=== PATIENT | female | born 1960 | race Hispanic/Latino ===

== ENCOUNTER 2019-03-22 09:05 | Emergency (ER) | payer BC ==
[~2019-03-22] VITALS: Ht 149.9 cm; Wt 70.0 kg
[2019-03-22] MEDS ORDERED: JANUVIA100 MG PO (09:38)
[2019-03-22] MEDS ORDERED: ATORVASTATIN CA20 MG PO (09:38)
[2019-03-22] MEDS ORDERED: DICLOFENAC SODI75 M1 PO (09:39)
[2019-03-22] MEDS ORDERED: TRESIBA FL100 UNIT/M SC (09:58)
[2019-03-22] MEDS ORDERED: VITAMIN D350000 UNIT PO (09:59)
[2019-03-22] MEDS ORDERED: CYCLOBENZAPR10 MG PO ×2 (09:59→12:05)
[2019-03-22] MEDS ORDERED: LISINOPRIL10 MG PO (10:00)
[2019-03-22 10:12] LABS: HEMATOCRIT 44.6 % (37.0-47.0); HEMOGLOBIN 15.6 g/dl (12.0-16.0); IMMATURE GRANULOCYTES 0.5 % (0.0-5.0); MEAN CELL VOLUME 91.4 fL CALC (80.0-100.0); NEUT# 6.57 thou/uL (2.00-7.15); RED BLOOD COUNT 4.88 mill/uL (4.20-5.60); RED CELL DISTRI WIDTH 12.7 % (11.5-15.5)
[2019-03-22 10:31] LABS: ALKALINE PHOSPHATASE 191 u/l (38-126); ANION GAP 14 (6-22 (CALC)); BILIRUBIN, TOTAL 0.6 mg/dL (0.0-1.4); BUN 19 mg/dL (7-17); BUN/CREATININE RATIO 24 (12-20 (CALC)); CARBON DIOXIDE 25 mmol/l (22-30); CHLORIDE 103 mmol/l (95-108); CPK 36 u/l (30-165); CREATININE 0.8 mg/dL (0.5-1.0); GFR > 60 ML/MIN (>=60 (CALC)); GFR FOR AFR.AMER. > 60 ML/MIN (>=60 (CALC)); POTASSIUM 4.5 mmol/l (3.5-5.1); SGOT/AST 49 u/l (14-36); SODIUM 138 mmol/l (137-146); TOTAL PROTEIN 7.4 g/dL (6.3-8.2)
[2019-03-22 10:38] LABS: URINE BILIRUBIN - DIPSTICK NEGATIVE (NEGATIVE); URINE BLOOD DIPSTICK NEGATIVE (NEGATIVE); URINE COLOR YELLOW; URINE GLUCOSE - DIPSTICK >=1000 mg/dL (NEGATIVE); URINE KETONE NEGATIVE (NEGATIVE); URINE LEUK ESTERASE NEGATIVE (NEGATIVE); URINE NITRITE - DIPSTICK NEGATIVE (Negative); URINE PH 5.5 (4.5-8.0); URINE PROTEIN - DIPSTICK 30 mg/dL (NEG-TRACE); URINE SPECIFIC GRAVITY 1.015; URINE UROBILINOGEN - DIPSTICK 0.2 E.U./dL (0.2)
[2019-03-22 10:39] LABS: URINE EPITHELIAL CELLS MODERATE EPI/hpf (0-FEW)
[2019-03-22 12:11] VITALS: BP 123/66
== END 2019-03-22 12:15 | disposition home or self-care (01) | DRG 556 ==
LOC: ED 09:05
PROVIDERS: Family Medicine
DX: M62.838 Other muscle spasm (principal); E11.65 Type 2 diabetes mellitus with hyperglycemia; I10 Essential (primary) hypertension; Z79.4 Long term (current) use of insulin; F17.210 Nicotine dependence, cigarettes, uncomplicated

== ENCOUNTER 2020-11-04 09:37 | Inpatient (IN) | payer OTHER ==
[2020-11-04] VITALS (11 sets, daily range): BP systolic 114–152; BP diastolic 75–98
[~2020-11-04 09:37] MED LIST: ATORVASTATIN CA20 MG PO; CYCLOBENZAPR10 MG PO; DICLOFENAC SODI75 M1 PO; JANUVIA100 MG PO; LISINOPRIL10 MG PO; LYRICA150 MG PO; TIZANIDINE4 MG PO; TRESIBA FL100 UNIT/M SC; VITAMIN D350000 UNIT PO
[2020-11-04 10:19] LABS: BASO% 1 % (0-3); EOS% 1 % (0-8); HEMATOCRIT 44.1 % (37.0-47.0); HEMOGLOBIN 15.5 g/dl (12.0-16.0); IMMATURE GRANULOCYTES 0.6 % (0.0-5.0); LYMPH% 27 % (15-41); MEAN CELL VOLUME 88.6 fL CALC (80.0-100.0); MEAN CORPUSCULAR HGB 31.1 pG CALC (26.0-32.0); MEAN CORPUSCULAR HGB CONC 35.1 g/dL CAL (32.0-36.0); MONO% 6 % (2-13); NEUT% 64 % (42-76); PLATELET COUNT 200 thou/uL (130-400); RED BLOOD COUNT 4.98 mill/uL (4.20-5.60)
[2020-11-04 10:35] LABS: URINE BILIRUBIN - DIPSTICK NEGATIVE (NEGATIVE); URINE BLOOD DIPSTICK TRACE-LYSED (NEGATIVE); URINE COLOR YELLOW; URINE GLUCOSE - DIPSTICK >=1000 mg/dL (NEGATIVE); URINE KETONE TRACE mg/dL (NEGATIVE); URINE LEUK ESTERASE NEGATIVE (NEGATIVE); URINE PROTEIN - DIPSTICK 100 mg/dL (NEG-TRACE); URINE SPECIFIC GRAVITY 1.015; URINE UROBILINOGEN - DIPSTICK 0.2 E.U./dL (0.2)
[2020-11-04 10:35] LABS: AMYLASE 80 u/l (30-110); LIPASE 363 u/l (23-300)
[2020-11-04 10:36] LABS: URINE EPITHELIAL CELLS MODERATE EPI/hpf (0-FEW); URINE NITRITE - DIPSTICK NEGATIVE (Negative); URINE RBC 0-2 RBC/hpf (0-5)
[2020-11-04 11:19] LABS: ALBUMIN 4.3 g/dL (3.2-5.0); ALKALINE PHOSPHATASE 212 u/l (38-126); ANION GAP 14 (6-22 (CALC)); BILIRUBIN, TOTAL 0.8 mg/dL (0.0-1.4); BUN 23 mg/dL (7-17); BUN/CREATININE RATIO 22 (12-20 (CALC)); CARBON DIOXIDE 23 mmol/l (22-30); CHLORIDE 96 mmol/l (95-108); CREATININE 1.1 mg/dL (0.5-1.0); GFR 51 ML/MIN (>=60 (CALC)); GFR FOR AFR.AMER. > 60 ML/MIN (>=60 (CALC)); SGOT/AST 31 u/l (14-36)
[2020-11-04 11:22] LABS: SODIUM 128 mmol/l (137-146)
[2020-11-05] VITALS (12 sets, daily range): BP systolic 120–153; BP diastolic 58–92
[2020-11-05 05:40] LABS: HEMATOCRIT 39.1 % (37.0-47.0); MEAN CELL VOLUME 91.8 fL CALC (80.0-100.0); MEAN CORPUSCULAR HGB 31.2 pG CALC (26.0-32.0); RED BLOOD COUNT 4.26 mill/uL (4.20-5.60); RED CELL DISTRI WIDTH 12.3 % (11.5-15.5)
[2020-11-05 05:44] LABS: HEMOGLOBIN 13.3 g/dl (12.0-16.0)
[2020-11-05 06:25] LABS: ANION GAP 9 (6-22 (CALC)); BUN 14 mg/dL (7-17); BUN/CREATININE RATIO 17 (12-20 (CALC)); CARBON DIOXIDE 22 mmol/l (22-30); CHLORIDE 107 mmol/l (95-108); CHOLESTEROL HDL RATIO 11.6 (<4.4 (CALC)); CREATININE 0.8 mg/dL (0.5-1.0); GFR > 60 ML/MIN (>=60 (CALC)); GFR FOR AFR.AMER. > 60 ML/MIN (>=60 (CALC)); HDL CHOLESTEROL 24 mg/dL (>=40); MAGNESIUM 1.7 mg/dL (1.6-2.3); POTASSIUM 4.5 mmol/l (3.5-5.1); SODIUM 133 mmol/l (137-146); TOTAL CHOLESTEROL 279 mg/dl (0-199)
[2020-11-05 06:27] LABS: TOTAL TRIGLYCERIDES > 525 mg/dl (30-149)
[2020-11-06] VITALS: BP 134/70
[2020-11-06 04:00] VITALS: BP 141/79
[2020-11-06 05:42] LABS: HEMATOCRIT 37.6 % (37.0-47.0); HEMOGLOBIN 13.1 g/dl (12.0-16.0); MEAN CELL VOLUME 89.7 fL CALC (80.0-100.0); MEAN CORPUSCULAR HGB 31.3 pG CALC (26.0-32.0); MEAN CORPUSCULAR HGB CONC 34.8 g/dL CAL (32.0-36.0); RED BLOOD COUNT 4.19 mill/uL (4.20-5.60); RED CELL DISTRI WIDTH 12.3 % (11.5-15.5)
[2020-11-06 06:12] LABS: ANION GAP 9 (6-22 (CALC)); BUN 13 mg/dL (7-17); BUN/CREATININE RATIO 16 (12-20 (CALC)); CARBON DIOXIDE 19 mmol/l (22-30); CHLORIDE 109 mmol/l (95-108); CREATININE 0.8 mg/dL (0.5-1.0); GFR > 60 ML/MIN (>=60 (CALC)); GFR FOR AFR.AMER. > 60 ML/MIN (>=60 (CALC)); SODIUM 132 mmol/l (137-146)
[2020-11-06 08:00] VITALS: BP 155/82
[2020-11-06] MEDS ORDERED: LEVEMIR FL100 UNIT/M SC (10:44)
[2020-11-06] MEDS ORDERED: NYSTOP100000 UNI TOP (10:45)
[2020-11-06] MEDS ORDERED: TRAMADOL HCL50 MG PO (10:46)
[2020-11-06 12:00] VITALS: BP 165/88
[2020-11-06 13:27] VITALS: BP 163/84
[2020-11-06 14:12] VITALS: BP 158/83
== END 2020-11-06 14:55 | disposition home or self-care (01) | DRG 638 ==
LOC: ED 09:37 → ED-I 12:38 → ED 12:57 → ICU 12:58
PROVIDERS: Emergency Medicine; Nurse Practitioner; ADMIT Internal Medicine; ATTEND Internal Medicine
DX: E11.65 Type 2 diabetes mellitus with hyperglycemia (principal); E87.1 Hypo-osmolality and hyponatremia; N17.9 Acute kidney failure, unspecified; I10 Essential (primary) hypertension; T38.3X6A Underdosing of insulin and oral hypoglycemic [antidiabetic] drugs, initial encounter; E78.5 Hyperlipidemia, unspecified; F17.210 Nicotine dependence, cigarettes, uncomplicated; Z91.120 Patient's intentional underdosing of medication regimen due to financial hardship; Z79.4 Long term (current) use of insulin; Z20.822 Contact with and (suspected) exposure to COVID-19
CPT/HCPCS: J1650

== ENCOUNTER 2021-02-09 21:08 | Emergency (ER) | payer OTHER ==
[~2021-02-09] VITALS: Ht 149.9 cm; Wt 68.0 kg
[~2021-02-09 21:08] MED LIST changes: +LEVEMIR FL100 UNIT/M SC; +NYSTOP100000 UNI TOP; +TRAMADOL HCL50 MG PO
[2021-02-09 21:48] LABS: IMMATURE GRANULOCYTES 0.2 % (0.0-5.0); MEAN CELL VOLUME 88.7 fL CALC (80.0-100.0); MEAN CORPUSCULAR HGB 31.5 pG CALC (26.0-32.0); MEAN CORPUSCULAR HGB CONC 35.6 g/dL CAL (32.0-36.0); NEUT# 10.1 thou/uL (2.00-7.15); RED BLOOD COUNT 5.23 mill/uL (4.20-5.60); RED CELL DISTRI WIDTH 12.2 % (11.5-15.5)
[2021-02-09 21:49] LABS: URINE BLOOD DIPSTICK MODERATE (NEGATIVE); URINE COLOR YELLOW; URINE GLUCOSE - DIPSTICK 500 mg/dL (NEGATIVE); URINE KETONE TRACE mg/dL (NEGATIVE); URINE LEUK ESTERASE NEGATIVE (NEGATIVE); URINE PH 5.5 (4.5-8.0); URINE PROTEIN - DIPSTICK >=300 mg/dL (NEG-TRACE); URINE SPECIFIC GRAVITY >=1.030; URINE UROBILINOGEN - DIPSTICK 0.2 E.U./dL (0.2)
[2021-02-09 21:50] LABS: URINE BILIRUBIN - DIPSTICK NEGATIVE (NEGATIVE); URINE NITRITE - DIPSTICK NEGATIVE (Negative)
[2021-02-09 21:50] LABS: HEMATOCRIT 46.4 % (37.0-47.0); HEMOGLOBIN 16.5 g/dl (12.0-16.0)
[2021-02-09 21:57] LABS: URINE SQUAMOUS EPITHELIAL CELL FEW EPI/hpf (0-FEW)
[2021-02-09 22:03] LABS: ALBUMIN 3.9 g/dL (3.2-5.0); ALKALINE PHOSPHATASE 149 u/l (38-126); AMYLASE 104 u/l (30-110); ANION GAP 12 (6-22 (CALC)); BILIRUBIN, TOTAL 0.9 mg/dL (0.0-1.4); BUN 21 mg/dL (7-17); BUN/CREATININE RATIO 20 (12-20 (CALC)); CARBON DIOXIDE 21 mmol/l (22-30); CHLORIDE 104 mmol/l (95-108); GFR 57 ML/MIN (>=60 (CALC)); GFR FOR AFR.AMER. > 60 ML/MIN (>=60 (CALC)); LIPASE 269 u/l (23-300); POTASSIUM 4.2 mmol/l (3.5-5.1); SODIUM 133 mmol/l (137-146); TOTAL PROTEIN 7.9 g/dL (6.3-8.2)
[2021-02-09 22:07] LABS: SGOT/AST 155 u/l (14-36)
[2021-02-09 22:15] LABS: MYOGLOBIN 32 ng/mL (0 - 62)
[2021-02-09] MEDS ORDERED: MECLIZINE25 MG PO (23:59)
[2021-02-09] MEDS ORDERED: CEPHALEXIN500 MG PO (23:59)
[2021-02-09] MEDS ORDERED: ONDANSETRON4 MG PO (23:59)
[2021-02-10 00:22] VITALS: BP 132/75
== END 2021-02-10 00:22 | disposition home or self-care (01) | DRG 690 ==
LOC: ED 21:08
PROVIDERS: Emergency Medicine
DX: N39.0 Urinary tract infection, site not specified (principal); R42 Dizziness and giddiness; E11.9 Type 2 diabetes mellitus without complications; I10 Essential (primary) hypertension; E78.00 Pure hypercholesterolemia, unspecified; F17.210 Nicotine dependence, cigarettes, uncomplicated; Z79.4 Long term (current) use of insulin
CPT/HCPCS: Q9967

== ENCOUNTER 2023-04-28 23:55 | Observation (INO) | payer OTHER ==
[~2023-04-28] VITALS: Ht 149.9 cm; Wt 75.0 kg
[~2023-04-28 23:55] MED LIST changes: +CEPHALEXIN500 MG PO; +MECLIZINE25 MG PO; +ONDANSETRON4 MG PO
--- NOTE | 2023-04-28 23:55 | NUR ---
PT TO RM 9 VIA EMS
[2023-04-29] VITALS (95 sets, daily range): BP systolic 107–213; BP diastolic 56–114
[2023-04-29] MEDS ORDERED: NEURONTIN100 MG PO (00:19)
[2023-04-29] MEDS ORDERED: XANAX0.25 MG PO (00:20)
[2023-04-29] MEDS ORDERED: LASIX 20 MG TAB20 MG PO (00:21)
[2023-04-29 00:46] LABS: BASO% 0.5 % (0-3); EOS% 4.5 % (0-8); HEMATOCRIT 40.7 % (37.0-47.0); IMMATURE GRANULOCYTES 0.5 % (0.0-5.0); LYMPH% 20.8 % (15-41); MEAN CORPUSCULAR HGB 33.6 pG CALC (26.0-32.0); MEAN CORPUSCULAR HGB CONC 35.6 g/dL CAL (32.0-36.0); MONO% 7.9 % (2-13); NEUT# 3.83 thou/uL (2.00-7.15); NEUT% 65.8 % (42-76); RED BLOOD COUNT 4.31 mill/uL (4.20-5.60); RED CELL DISTRI WIDTH 11.7 % (11.5-15.5)
[2023-04-29 00:48] LABS: HEMOGLOBIN 14.5 g/dl (12.0-16.0); MEAN CELL VOLUME 94.4 fL CALC (80.0-100.0)
[2023-04-29 00:53] LABS: ALBUMIN 3.3 g/dL (3.2-5.0); ALKALINE PHOSPHATASE 152 u/l (38-126); ANION GAP 11 (6-22 (CALC)); BUN 24 mg/dL (8-23); BUN/CREATININE RATIO 15 (12-20 (CALC)); CARBON DIOXIDE 22 mmol/l (22-30); CHLORIDE 106 mmol/l (95-108); CREATININE 1.6 mg/dL (0.5-1.0); GFR FOR AFR.AMER. 40 ML/MIN (>=60 (CALC)); GFR OTHER RACES 33 ML/MIN (>=60 (CALC)); POTASSIUM 3.7 mmol/l (3.5-5.1); SGOT/AST 44 u/l (9-36); SODIUM 135 mmol/l (137-146); TOTAL PROTEIN 6.8 g/dL (6.3-8.2)
[2023-04-29 00:54] LABS: BILIRUBIN, TOTAL 0.4 mg/dL (0.02-1.3)
[2023-04-29 01:27] LABS: ACT PARTIAL THROMBO TIME 25.3 SECONDS (20.0-32.5); PROTHROMBIN TIME 9.3 SECONDS (9.0-12.5)
--- NOTE | 2023-04-29 02:30 | NUR ---
PATIENT ARRIVED ON UNIT VIA STRETCHER, ACCOMPANIED BY 2 ER NURSES. PATIENT AMBULATED TO BED. ASSESSMENT COMPLETED. SHE IS A/O X3. VSS AT THIS TIME. EMS NOTED TO THE RIGHT HAND WITH HANS DRIPP AT 5. CARDENE DRIP TURNED DOWN TO 2.5, HER BP IS DROPPING TO LOW TO FAST. WILL CONTINUE TO MONITOR BP CLOSELY. HER LUNGS ARE CTA. BOWEL SOUNDS ACTIVE IN ALL FOUR QUADS. SHE STATED SHE HAS NOT HAD A BM IN 4 DAYS, WHICH IS NORMAL FOR HER. SHE IS SR ON THE MONITOR. SKIN INTACT. +2 PITTING EDEMA NOTED TO BLE. SHE COMPLAINS OF HEADACHE THAT IS STARTING TO BE RELEIVED FROM MEDS THAT WERE GIVEN IN ER. BED LOCKED. IN LOW POSITION. CALL LIGHT WITHIN REACH.
--- NOTE | 2023-04-29 05:54 | NUR ---
PATIENT COMPLAINING OF SEVERE HEADACHE THAT IS COMING AND GOING. MD CONTACTED FOR SOMETHING STRONGER TO CONTROL PATIENTS HEADACHE.
--- NOTE | 2023-04-29 07:20 | NUR ---
pt awake in bed; no apparent distress noted; assessment completed at this time; pt alert and oriented; admits to headache rating 3/10, admits to pain relief s/p receiving pain meds; warm pack noted to forehead; pt denies n/v; resp even and unlabored; lungs clear; skin color wnl; ra; hr reg; strong pulses; no edema noted; sr/st on monitor; abd soft/distended with bs present; no bm noted per technical proposal writer; pt admits to voiding, brp; no urine to inspect at this time; #20 ems site patent to rh with cardene gtt infusing at 2.5mg/hr; no redness or edema noted at site; plan of care/ meds explained; call light within reach; will continue to monitor
--- NOTE | 2023-04-29 08:00 | NUR ---
awake; complaints of right side headache; sr/st on monitor; call light within reach; will continue to monitor
--- NOTE | 2023-04-29 10:15 | NUR ---
awake in bed; sr/st on monitor; call light within reach; will continue to monitor
--- NOTE | 2023-04-29 10:50 | NUR ---
Dr Manriquez present at bedside to assess pt and discuss plan of care
--- NOTE | 2023-04-29 12:00 | NUR ---
awake in bed eating lunch; no apparent distress noted; iv intact; sr on monitor; call light within reach; will continue to monitor
[2023-04-29 12:31] LABS: CREATININE 1.4 mg/dL (0.5-1.0); POTASSIUM 3.9 mmol/l (3.5-5.1)
--- NOTE | 2023-04-29 14:00 | NUR ---
resting in bed with eyes closed; no acute distress; will continue to monitor
--- NOTE | 2023-04-29 16:10 | NUR ---
awake in bed; complaints of headache, previously medicated; sr on monitor; will continue to monitor
--- NOTE | 2023-04-29 17:57 | NUR ---
awake in bed eating dinner; offers no complaints; iv intact; sr on monitor; call light within reach
--- NOTE | 2023-04-29 18:26 | NUR ---
family x2 at bedside
--- NOTE | 2023-04-29 19:00 | NUR ---
BEDSIDE REPORT RECEIVE FROM Ruben FINNEGAN RN AT BEDSIDE. CARE OF PT ASSUMED AT THIS TIME.
--- NOTE | 2023-04-29 19:37 | NUR ---
POINT OF CARE GLUCOSE 184mg/Dl.
--- NOTE | 2023-04-29 20:37 | NUR ---
PRESCRIBED MEDICATIONS ADMINISTERED, PRN APAP ADMINISTERED FOR MILD THROBBING HEADACHE RATED 2/10 BY PT. SEE E-MAR. WATER PITCHER REFRESHED. PT DENIES FIRTHER NEEDS AT THIS TIME. CALL DEL ROSARIO WITHIN REACH, AGREES TO CALL PRN.
[2023-04-30] VITALS (15 sets, daily range): BP systolic 128–166; BP diastolic 80–98
--- NOTE | 2023-04-30 | NUR ---
PT LAYING IN BED, EYES CLOSED, GENTLY SNORING, RESPIRATIONS REGULAR AND UNLABORED. NO APPARENT DISTRESS. APPEARS TO BE SLEEPING COMFORTABLY. CALL [facility] ROSARIO REMAINS WITHIN REACH.
--- NOTE | 2023-04-30 03:30 | NUR ---
PT WAKES AND REQUEST PRN ANALGESIC FOR HEADACHE, RATES PAIN LEVEL 6/10. PRN LORTAB ADMINISTERED. WARM COMPRESS PROVIDED.
--- NOTE | 2023-04-30 04:26 | NUR ---
PHLEPOTOMIST AT BEDSIDE COLLECTING AM LABS.
--- NOTE | 2023-04-30 04:30 | NUR ---
PT REPORTS ACCEPTABLE RELIEF OF HEADACHE, DENIES FURTHER NEEDS AT THIS TIME. CARLA DEL ROSARIO WITHIN REACH, AGREES TO CALL PRN.
[2023-04-30 05:19] LABS: HEMATOCRIT 38.1 % (37.0-47.0); HEMOGLOBIN 13.7 g/dl (12.0-16.0); MEAN CORPUSCULAR HGB 34.2 pG CALC (26.0-32.0); RED BLOOD COUNT 4.01 mill/uL (4.20-5.60); RED CELL DISTRI WIDTH 11.8 % (11.5-15.5)
[2023-04-30 05:47] LABS: ALBUMIN 2.7 g/dL (3.2-5.0); CREATININE 1.3 mg/dL (0.5-1.0); MAGNESIUM 1.6 mg/dL (1.6-2.3); POTASSIUM 3.5 mmol/l (3.5-5.1); TOTAL PROTEIN 5.6 g/dL (6.3-8.2)
[2023-04-30 05:48] LABS: BILIRUBIN, TOTAL 0.6 mg/dL (0.02-1.3)
--- NOTE | 2023-04-30 07:25 | NUR ---
pt awake in bed; no apparent distress noted; pt offers complaints of improving headache; assessment completed at this time; pt alert and oriented; no n/v noted; resp even and unlabored; lungs clear; skin color wnl; ra; hr reg; strong pulses; 1+ edema noted to ble; sr on monitor; abd soft with bs present present; no bm noted per medical underwriter; pt admits to voiding without complication; no urine to inspect; bsc; #20 ems site to rh flushed and patent; no redness or edema noted at site; plan of care/ meds explained; call light within reach; will continue to monitor
--- NOTE | 2023-04-30 08:08 | NUR ---
awake in bed; no apparent distress noted; sr on monitor; will continue to monitor
--- NOTE | 2023-04-30 10:09 | NUR ---
awake conversing on cell phone; no distress noted; sr on monitor; will continue to monitor
--- NOTE | 2023-04-30 10:20 | NUR ---
Dr Manriquez present at bedside to assess pt and discuss plan of care
--- NOTE | 2023-04-30 12:09 | NUR ---
s/o present at bedside; no apparent distress noted; st on monitor; call light within reach; will continue to monitor
[2023-04-30] MEDS ORDERED: LOSARTAN POTASS50 MG PO (13:27)
[2023-04-30] MEDS ORDERED: AMLODIPINE BESYL5 MG PO (13:28)
[2023-04-30] MEDS ORDERED: MAPAP325 MG PO (13:28)
[2023-04-30] MEDS ORDERED: COREG6.25 MG PO (13:29)
--- NOTE | 2023-04-30 14:00 | NUR ---
Discharge instructions given. Patient verbalizes understanding of same. Discharged in stable condition via Wheelchair to Home with spouse. All belongings sent with pt.
== END 2023-04-30 14:03 | disposition home or self-care (01) | DRG 305 ==
LOC: ED 23:55 → ED-I 04-29 01:20 → ED 04-29 01:49 → ICU 04-29 01:50
PROVIDERS: Emergency Medicine; ADMIT Student in an Organized Health Care Education/Training Program; ATTEND Student in an Organized Health Care Education/Training Program
DX: I16.1 Hypertensive emergency (principal); N17.9 Acute kidney failure, unspecified; I10 Essential (primary) hypertension; E11.65 Type 2 diabetes mellitus with hyperglycemia; E78.00 Pure hypercholesterolemia, unspecified; F17.200 Nicotine dependence, unspecified, uncomplicated; Z79.4 Long term (current) use of insulin; Z85.41 Personal history of malignant neoplasm of cervix uteri; Z92.3 Personal history of irradiation; Z92.21 Personal history of antineoplastic chemotherapy
CPT/HCPCS: J1650

== ENCOUNTER 2024-08-27 09:01 | Emergency (ER) | payer OTHER ==
[~2024-08-27] VITALS: Ht 149.9 cm; Wt 75.0 kg
[2024-08-27] VITALS (8 sets, daily range): BP systolic 122–152; BP diastolic 58–80
[~2024-08-27 09:01] MED LIST changes: +AMLODIPINE BESYL5 MG PO; +COREG6.25 MG PO; +LASIX 20 MG TAB20 MG PO; +LOSARTAN POTASS50 MG PO; +MAPAP325 MG PO; +NEURONTIN100 MG PO; +XANAX0.25 MG PO
[2024-08-27] MEDS ORDERED: KETOROLAC TROMETHAMINE 15 MG/ML SDV IV ONE (10:00)
[2024-08-27] MEDS ORDERED: MORPHINE SULFATE 4 MG/ML VIAL IV ONE ×2 (10:00→12:25)
[2024-08-27] MEDS ORDERED: ONDANSETRON HCl 4 MG/2 ML SDV IV ONE (10:00)
[2024-08-27 10:09] LABS: BASO% 0.7 % (0-3); EOS% 4.1 % (0-8); HEMATOCRIT 38.4 % (37.0-47.0); HEMOGLOBIN 13.1 g/dl (12.0-16.0); IMMATURE GRANULOCYTES 0.3 % (0.0-5.0); LYMPH% 13.4 % (15-41); MEAN CELL VOLUME 88.1 fL CALC (80.0-100.0); MEAN CORPUSCULAR HGB CONC 34.1 g/dL CAL (32.0-36.0); MONO% 7.6 % (2-13); NEUT# 5.25 thou/uL (2.00-7.15); NEUT% 73.9 % (42-76); RED BLOOD COUNT 4.36 mill/uL (4.20-5.60); RED CELL DISTRI WIDTH 12.7 % (11.5-15.5)
[2024-08-27 10:27] LABS: ALKALINE PHOSPHATASE 171 u/l (38-126); ANION GAP 18 (6-22 (CALC)); BUN 33 mg/dL (8-23); CARBON DIOXIDE 16 mmol/l (22-30); CHLORIDE 108 mmol/l (95-108); POTASSIUM 4.8 mmol/l (3.5-5.1); SGOT/AST 36 u/l (9-36); SODIUM 138 mmol/l (137-146)
[2024-08-27 10:38] LABS: ALBUMIN 4.5 g/dL (3.2-5.0); BILIRUBIN, TOTAL 0.6 mg/dL (0.02-1.3); BUN/CREATININE RATIO 12 (12-20 (CALC)); CREATININE 2.7 mg/dL (0.5-1.0); ESTIMATED GFR 19 ML/MIN (>=90 (CALC)); TOTAL PROTEIN 8.9 g/dL (6.3-8.2)
[2024-08-27] MEDS ORDERED: LAMISIL AT1 % EX (12:19)
[2024-08-27] MEDS ORDERED: HYDROCO/APAP1 TA9 PO (12:19)
[2024-08-27] MEDS ORDERED: AMBIEN5 MG PO (12:19)
== END 2024-08-27 12:48 | disposition home or self-care (01) ==
LOC: ED 09:01
PROVIDERS: Family Medicine
DX: M25.512 Pain in left shoulder (principal); M25.511 Pain in right shoulder; M54.2 Cervicalgia; G47.00 Insomnia, unspecified; I10 Essential (primary) hypertension; E11.9 Type 2 diabetes mellitus without complications; E78.00 Pure hypercholesterolemia, unspecified; Z79.4 Long term (current) use of insulin
CPT/HCPCS: J1885; J2405

== ENCOUNTER 2024-09-28 18:18 | Observation (INO) | payer OTHER ==
[~2024-09-28] VITALS: Ht 149.9 cm; Wt 74.2 kg
[2024-09-28] VITALS (21 sets, daily range): BP systolic 103–152; BP diastolic 59–82
[~2024-09-28 18:18] MED LIST changes: +AMBIEN5 MG PO; +HYDROCO/APAP1 TA9 PO; +LAMISIL AT1 % EX
[2024-09-28] MEDS ORDERED: ASPIRIN 81 MG/TAB PO ONE (18:30)
[2024-09-28] MEDS ORDERED: NITROGLYCERIN 0.4 MG/TAB SL ONE (18:40)
[2024-09-28 18:52] LABS: BASO% 0.4 % (0-3); EOS% 3.4 % (0-8); IMMATURE GRANULOCYTES 0.3 % (0.0-5.0); LYMPH% 14.1 % (15-41); MEAN CELL VOLUME 88.3 fL CALC (80.0-100.0); MEAN CORPUSCULAR HGB 30.3 pG CALC (26.0-32.0); MEAN CORPUSCULAR HGB CONC 34.4 g/dL CAL (32.0-36.0); MONO% 7.6 % (2-13); NEUT# 5.2 thou/uL (2.00-7.15); NEUT% 74.2 % (42-76); RED BLOOD COUNT 3.66 mill/uL (4.20-5.60); RED CELL DISTRI WIDTH 13.1 % (11.5-15.5)
[2024-09-28 18:53] LABS: HEMATOCRIT 32.3 % (37.0-47.0); HEMOGLOBIN 11.1 g/dl (12.0-16.0)
[2024-09-28 19:00] LABS: ALBUMIN 3.7 g/dL (3.2-5.0); ALKALINE PHOSPHATASE 150 u/l (38-126); ANION GAP 16 (6-22 (CALC)); BILIRUBIN, TOTAL 0.5 mg/dL (0.02-1.3); BUN 30 mg/dL (8-23); BUN/CREATININE RATIO 14 (12-20 (CALC)); CARBON DIOXIDE 18 mmol/l (22-30); CHLORIDE 104 mmol/l (95-108); CREATININE 2.1 mg/dL (0.5-1.0); ESTIMATED GFR 26 ML/MIN (>=90 (CALC)); LIPASE 187 u/l (23-300); POTASSIUM 4.9 mmol/l (3.5-5.1); SGOT/AST 33 u/l (9-36); SODIUM 132 mmol/l (137-146); TOTAL PROTEIN 7.3 g/dL (6.3-8.2)
[2024-09-28 19:04] LABS: INTERNATIONAL NORMALIZED RATIO 0.9 RATIO (0.7-1.3)
[2024-09-28 19:05] LABS: PROTHROMBIN TIME 9.8 SECONDS (9.0-12.5)
[2024-09-28] MEDS ORDERED: JARDIANCE25 MG PO (19:27)
[2024-09-28] MEDS ORDERED: COREG6.25 MG PO (19:28)
[2024-09-28] MEDS ORDERED: COZAAR25 MG PO (19:37)
[2024-09-28] MEDS ORDERED: AMLODIPINE BESYL5 MG PO (19:38)
[2024-09-28] MEDS ORDERED: HUMALOG100 UNIT/M SC (19:39)
[2024-09-28] MEDS ORDERED: SODIUM CHLORIDE 0.9% 1,000 ML IV ONE (19:40)
[2024-09-28] MEDS ORDERED: INSULIN REGULAR (HUMAN) 100 UNIT/ML INJ IV ONE (19:40)
[2024-09-28] MEDS ORDERED: Polyethylene Glycol 3350 17 GM/PKT PO PRN (22:00)
[2024-09-28] MEDS ORDERED: ONDANSETRON 4 MG/TAB ODT SL PRN (22:00)
[2024-09-28] MEDS ORDERED: ACETAMINOPHEN 325 MG/TAB PO PRN (22:00)
[2024-09-28] MEDS ORDERED: LACTATED RINGER'S 1,000 ML IV PRN (22:00)
[2024-09-28] MEDS ORDERED: Heparin SODIUM (Porcine) 5,000 UNITS/ML SDV SC SCH (22:00)
[2024-09-28] MEDS ORDERED: MELATONIN 3 MG/TAB PO PRN (22:00)
[2024-09-28] MEDS ORDERED: NITROGLYCERIN 0.4 MG/TAB SL PRN (22:05)
[2024-09-28 22:38] LABS: CHOLESTEROL HDL RATIO 8.5 (<4.4 (CALC)); HDL CHOLESTEROL 31 mg/dL (39.0-59.0); TOTAL CHOLESTEROL 267 mg/dl (0-199)
[2024-09-28 22:40] LABS: TOTAL TRIGLYCERIDES 465 mg/dl (0-149)
[2024-09-28] MEDS ORDERED: hydrALAZINE HCL 20 MG/ML VIAL(1 ML) IV PRN (23:00)
[2024-09-28 23:09] LABS: TSH, 3RD GENERATION 1.96 uIU/mL (0.47 - 4.68)
[2024-09-29] VITALS (10 sets, daily range): BP systolic 107–139; BP diastolic 57–72
[2024-09-29] MEDS ORDERED: GABAPENTIN300 M2 PO (03:29)
[2024-09-29] MEDS ORDERED: CRESTOR40 MG PO (03:30)
[2024-09-29 05:06] LABS: BASO% 0.9 % (0-3); HEMATOCRIT 29.9 % (37.0-47.0); HEMOGLOBIN 10.3 g/dl (12.0-16.0); IMMATURE GRANULOCYTES 0.3 % (0.0-5.0); LYMPH% 17.3 % (15-41); MEAN CELL VOLUME 88.2 fL CALC (80.0-100.0); MEAN CORPUSCULAR HGB 30.4 pG CALC (26.0-32.0); MEAN CORPUSCULAR HGB CONC 34.4 g/dL CAL (32.0-36.0); MONO% 7.5 % (2-13); NEUT# 4.01 thou/uL (2.00-7.15); RED BLOOD COUNT 3.39 mill/uL (4.20-5.60)
[2024-09-29 05:35] LABS: ALBUMIN 2.7 g/dL (3.2-5.0); BILIRUBIN, TOTAL 0.4 mg/dL (0.02-1.3); CREATININE 1.9 mg/dL (0.5-1.0); POTASSIUM 4.5 mmol/l (3.5-5.1); TOTAL PROTEIN 5.8 g/dL (6.3-8.2)
[2024-09-29] MEDS ORDERED: INSULIN LISPRO 100 UNITS/ML ML SC SCH (07:00)
[2024-09-29] MEDS ORDERED: INSULIN GLARGINE 100 UNITS/ML SC SCH ×2 (09:00→11:30)
[2024-09-29] MEDS ORDERED: ASPIRIN 81 MG/TAB PO SCH (09:00)
[2024-09-29] MEDS ORDERED: DEXTROSE 250 ML IV PRN (11:05)
[2024-09-29] MEDS ORDERED: ATORVASTATIN CALCIUM 40 MG/TAB PO SCH (21:00)
[2024-09-30 04:48] VITALS: BP 137/75
[2024-09-30 05:16] LABS: BASO% 0.6 % (0-3); EOS% 6.7 % (0-8); HEMOGLOBIN 10.3 g/dl (12.0-16.0); IMMATURE GRANULOCYTES 0.4 % (0.0-5.0); LYMPH% 15.2 % (15-41); MEAN CELL VOLUME 87.6 fL CALC (80.0-100.0); MEAN CORPUSCULAR HGB 31.1 pG CALC (26.0-32.0); MEAN CORPUSCULAR HGB CONC 35.5 g/dL CAL (32.0-36.0); MONO% 6.2 % (2-13); NEUT# 3.3 thou/uL (2.00-7.15); NEUT% 70.9 % (42-76); RED BLOOD COUNT 3.31 mill/uL (4.20-5.60); RED CELL DISTRI WIDTH 13.2 % (11.5-15.5)
[2024-09-30 05:24] LABS: ALBUMIN 2.9 g/dL (3.2-5.0); BILIRUBIN, TOTAL 0.4 mg/dL (0.02-1.3); CREATININE 1.9 mg/dL (0.5-1.0); MAGNESIUM 1.9 mg/dL (1.6-2.3); POTASSIUM 4.6 mmol/l (3.5-5.1)
[2024-09-30 05:27] VITALS: BP 130/45
[2024-09-30] MEDS ORDERED: INSULIN GLARGINE 100 UNITS/ML SC SCH (09:00)
[2024-09-30 10:15] VITALS: BP 143/52
[2024-09-30] MEDS ORDERED: ASPIRIN ADULT L81 M2 PO (11:45)
== END 2024-09-30 14:26 | disposition home or self-care (01) | DRG 313 ==
LOC: ED 18:18 → ED-I 21:44 → ED 21:55 → MS2 21:56
PROVIDERS: Nurse Practitioner; ADMIT Internal Medicine; ATTEND Internal Medicine
DX: R07.89 Other chest pain (principal); N17.9 Acute kidney failure, unspecified; I12.9 Hypertensive chronic kidney disease with stage 1 through stage 4 chronic kidney disease, or unspecified chronic kidney disease; E11.22 Type 2 diabetes mellitus with diabetic chronic kidney disease; N18.9 Chronic kidney disease, unspecified; E78.00 Pure hypercholesterolemia, unspecified; F17.200 Nicotine dependence, unspecified, uncomplicated; T38.3X6A Underdosing of insulin and oral hypoglycemic [antidiabetic] drugs, initial encounter; Z91.120 Patient's intentional underdosing of medication regimen due to financial hardship; Z92.21 Personal history of antineoplastic chemotherapy; Z92.3 Personal history of irradiation; Z79.4 Long term (current) use of insulin; Z85.9 Personal history of malignant neoplasm, unspecified; Z79.84 Long term (current) use of oral hypoglycemic drugs
CPT/HCPCS: G0378; J1644; J1815